=== PATIENT | female | born 1965 | race African-American/Black ===

== ENCOUNTER 2016-08-12 05:12 | Emergency (ER) | payer MEDICAID, OTHER ==
[~2016-08-12] VITALS: Ht 170.2 cm; Wt 77.0 kg
[~2016-08-12 05:12] MED LIST: ALBUTEROL; AMLO5TAB88; GABAPENTIN; TRAMADOL
[2016-08-12] MEDS ORDERED: PREDNISONE 20MG TABLET PO STA (05:38)
[2016-08-12] MEDS ORDERED: IPRATROPIUM BROMIDE (0.02%) 0.5MG/2.5ML NEB HHN STA (05:38)
[2016-08-12] MEDS ORDERED: ALBUTEROL (0.083%) 2.5MG/3ML NEB HHN STA (05:38)
[2016-08-12 07:46] VITALS: BP 119/67
== END 2016-08-12 08:40 | disposition home or self-care (01) ==
LOC: ER 05:14
DX: J45.901 Unspecified asthma with (acute) exacerbation (principal); I10 Essential (primary) hypertension; F12.90 Cannabis use, unspecified, uncomplicated; Z79.51 Long term (current) use of inhaled steroids; Z79.899 Other long term (current) drug therapy
CPT/HCPCS: 71010; 94640; 99283; J7512; J7611; Z7610

== ENCOUNTER 2018-03-25 09:06 | Emergency (ER) | payer MEDICAID ==
[~2018-03-25] VITALS: Ht 170.2 cm; Wt 78.0 kg
[2018-03-25 09:09] VITALS: BP 126/57
== END 2018-03-25 09:44 | disposition home or self-care (01) ==
LOC: ER 09:06
DX: J45.909 Unspecified asthma, uncomplicated (principal)
CPT/HCPCS: 99283

== ENCOUNTER 2018-04-15 17:25 | Emergency (ER) | payer MEDICAID ==
[~2018-04-15] VITALS: Ht 170.2 cm; Wt 77.2 kg
[2018-04-15 18:52] VITALS: BP 134/81
== END 2018-04-15 19:55 | disposition home or self-care (01) ==
LOC: ER 17:25
DX: T84.028A Dislocation of other internal joint prosthesis, initial encounter (principal); Y82.8 Other medical devices associated with adverse incidents; Y92.89 Other specified places as the place of occurrence of the external cause; J45.909 Unspecified asthma, uncomplicated; I10 Essential (primary) hypertension; Z98.890 Other specified postprocedural states
CPT/HCPCS: 29515; 99283

== ENCOUNTER 2019-03-13 04:53 | Emergency (ER) | payer MEDICAID, OTHER | END 2019-03-13 07:17 | disposition left against medical advice (07) | LOC: ER 04:53 | DX: J45.909 Unspecified asthma, uncomplicated (principal); Z53.21 Procedure and treatment not carried out due to patient leaving prior to being seen by health care provider ==

== ENCOUNTER 2021-03-16 07:45 | Emergency (ER) | payer OTHER ==
[~2021-03-16] VITALS: Ht 170.2 cm; Wt 77.0 kg
[2021-03-16 07:48] VITALS: BP 137/92
[2021-03-16] MEDS ORDERED: ALBUTEROL (0.083%) 2.5MG/3ML NEB HHN ONE (08:15)
[2021-03-16] MEDS ORDERED: GUAI600T26 MT (09:09)
[2021-03-16] MEDS ORDERED: ALBU05 NEB (09:09)
[2021-03-16] MEDS ORDERED: ALBU6.7H9 INH (09:09)
[2021-03-16] MEDS ORDERED: BENZ-16 MT (09:09)
== END 2021-03-16 09:35 | disposition home or self-care (01) ==
LOC: ER 07:45
DX: J45.901 Unspecified asthma with (acute) exacerbation (principal); B34.9 Viral infection, unspecified; I10 Essential (primary) hypertension; F12.10 Cannabis abuse, uncomplicated; Z20.822 Contact with and (suspected) exposure to COVID-19
CPT/HCPCS: 71045; 94640; 99284; C9803; U0003; U0005; Z7610

== ENCOUNTER 2021-11-20 08:19 | Emergency (ER) | payer MEDICAID, OTHER ==
[~2021-11-20] VITALS: Ht 170.2 cm; Wt 77.0 kg
[~2021-11-20 08:19] MED LIST changes: +ALBU05 NEB; +ALBU6.7H9 INH; +BENZ-16 MT; +GUAI600T26 MT
[2021-11-20] MEDS ORDERED: PREDNISONE 20MG TABLET PO STA (08:55)
[2021-11-20] MEDS ORDERED: ALBUTEROL (0.083%) 2.5MG/3ML NEB HHN STA (08:55)
[2021-11-20] MEDS ORDERED: IPRATROPIUM BROMIDE (0.02%) 0.5MG/2.5ML NEB HHN STA (08:55)
[2021-11-20 10:50] VITALS: BP 118/65
[2021-11-20] MEDS ORDERED: FLUT1DIS3 INH (11:14)
[2021-11-20] MEDS ORDERED: ALBU6.7H9 INH (11:18)
[2021-11-20] MEDS ORDERED: P50 PO (11:18)
== END 2021-11-20 11:22 | disposition home or self-care (01) ==
LOC: ER 08:19
DX: J45.901 Unspecified asthma with (acute) exacerbation (principal); I10 Essential (primary) hypertension; Z98.890 Other specified postprocedural states
CPT/HCPCS: 93005; 94644; 94664; 99285; J7512; Z7610

== ENCOUNTER 2022-03-18 03:59 | Emergency (ER) | payer OTHER ==
[~2022-03-18] VITALS: Ht 170.2 cm; Wt 77.0 kg
[~2022-03-18 03:59] MED LIST changes: +ALBU6.7H3 INH; -ALBU6.7H9 INH; +FLUT1DIS3 INH; +P50 PO
[2022-03-18 04:13] VITALS: BP 133/88
[2022-03-18] MEDS ORDERED: DEXAMETHASONE 1MG TABLET PO ONE (15:30)
[2022-03-18] MEDS ORDERED: DEXAMETHASONE 4MG TABLET PO NR (15:30)
[2022-03-18] MEDS ORDERED: DEXAMETHASONE 4MG TABLET PO SCH (21:00)
== END 2022-03-18 15:57 | disposition home or self-care (01) ==
LOC: ER 03:59
DX: J45.901 Unspecified asthma with (acute) exacerbation (principal); F12.10 Cannabis abuse, uncomplicated; I10 Essential (primary) hypertension; Z79.899 Other long term (current) drug therapy; Z98.890 Other specified postprocedural states
CPT/HCPCS: 99283; J8540

== ENCOUNTER 2022-04-15 09:20 | Emergency (ER) | payer OTHER ==
[~2022-04-15] VITALS: Ht 167.6 cm; Wt 67.0 kg
[2022-04-15] MEDS ORDERED: ASPIRIN 81MG TABLET PO ONE (10:45)
[2022-04-15] MEDS ORDERED: NITROGLYCERIN 0.4MG TABLET SL SL PRN (10:45)
[2022-04-15 11:33] LABS: EOSINOPHILS % 3.8 % (0.0-5.0); HEMATOCRIT. 40.6 % (36.0-48.0); HEMOGLOBIN. 12.9 g/dL (12.0-16.0); LYMPHOCYTES % 33.4 % (20.0-50.0); MEAN CORPUSCULAR HEMOGLOBIN 20.8 pg (28.0-32.0); MEAN CORPUSCULAR VOLUME 65.3 fL (81.0-99.0); MEAN PLATELET VOLUME 8.6 fl (7.4-10.4); MONOCYTES % 6.8 % (2.0-8.0); PLATELET 267 x1000/uL (130-400); RED BLOOD CELL COUNT 6.22 mill/uL (4.2-5.4); RED CELL DISTRIBUTION WIDTH 18.3 % (11.6-14.6)
[2022-04-15 11:43] LABS: CHLORIDE 105 mEq/L (98-107)
[2022-04-15 11:55] LABS: PLATELET ESTIMATE NORMAL
[2022-04-15] MEDS ORDERED: IOHEXOL-350 100 ML BOTTLE ONE (13:21)
[2022-04-15 15:15] VITALS: BP 134/74
== END 2022-04-15 15:16 | disposition home or self-care (01) ==
LOC: ER 09:20
DX: R07.89 Other chest pain (principal); R06.02 Shortness of breath; J45.909 Unspecified asthma, uncomplicated; I10 Essential (primary) hypertension; F12.10 Cannabis abuse, uncomplicated; Z79.899 Other long term (current) drug therapy
CPT/HCPCS: 36415; 71045; 71275; 80053; 83880; 84484; 85025; 85379; 93005; 99285; Q9967; Z7610

== ENCOUNTER 2022-05-12 09:34 | Emergency (ER) | payer OTHER ==
[~2022-05-12] VITALS: Ht 170.2 cm; Wt 77.5 kg
[2022-05-12 09:41] VITALS: BP 122/61
[2022-05-12] MEDS ORDERED: AMOX-494 MT (11:03)
[2022-05-12] MEDS ORDERED: IBUP-2029 MT (11:03)
== END 2022-05-12 11:13 | disposition home or self-care (01) ==
LOC: ER 09:34
DX: J02.9 Acute pharyngitis, unspecified (principal); I10 Essential (primary) hypertension; J45.909 Unspecified asthma, uncomplicated; F12.10 Cannabis abuse, uncomplicated
CPT/HCPCS: 99281

== ENCOUNTER 2022-12-09 08:24 | Emergency (ER) | payer OTHER ==
[~2022-12-09] VITALS: Ht 170.2 cm; Wt 77.2 kg
[~2022-12-09 08:24] MED LIST changes: +AMOX-494 MT; +IBUP-2029 MT
[2022-12-09 08:39] VITALS: O2SAT 98
[2022-12-09 09:18] LABS: BASOPHILS % 0.6 % (0.0-2.0); EOSINOPHILS % 1.3 % (0.0-5.0); HEMATOCRIT. 42.4 % (36.0-48.0); HEMOGLOBIN. 13.5 g/dL (12.0-16.0); LYMPHOCYTES % 20.7 % (20.0-50.0); MEAN CORPUSCULAR HEMOGLOBIN 21.1 pg (28.0-32.0); MEAN CORPUSCULAR HGB CONC 31.9 g/dL (31.0-37.0); MEAN CORPUSCULAR VOLUME 66.1 fL (81.0-99.0); MEAN PLATELET VOLUME 8.6 fl (7.4-10.4); MONOCYTES % 5.9 % (2.0-8.0); NEUTROPHILS % 71.5 % (40.0-76.0); PLATELET 269 x1000/uL (130-400); RED BLOOD CELL COUNT 6.41 mill/uL (4.2-5.4); WHITE BLOOD COUNT 8.9 x1000/uL (4.5-11.0)
[2022-12-09 09:20] LABS: ADD RBC MORPHOLOGY YES; DIFFERENTIAL COMMENT 1
[2022-12-09 09:26] LABS: CHLORIDE 108 mEq/L (98-107); INDEX HEMOLYSI 2 (1-3); INDEX ICTERIC 1 (1-4); INDEX LIPEMIC 1 (1-3); POTASSIUM 3.8 mEq/L (3.5-5.1); SODIUM 140 mEq/L (136-145)
[2022-12-09 09:33] LABS: ALANINE AMINOTRANSFERASE 20 IU/L (13-61); ALBUMIN 3.9 g/dL (3.4-5.0); ASPARTATE AMINOTRANSFERASE 22 IU/L (15-37); BILIRUBIN TOTAL 0.4 mg/dL (0.1-1.0); CARBON DIOXIDE 28 mEq/L (21-32); CREATININE 0.8 mg/dL (0.6-1.3); GLUCOSE 111 mg/dL (70-105); PROTEIN TOTAL 8.3 g/dL (6.0-8.3); UREA NITROGEN BLOOD 19 mg/dL (7-21)
[2022-12-09] MEDS ORDERED: LACTATED RINGERS 1,000 ML IV SCH (09:45)
[2022-12-09 09:46] LABS: ANISOCYTOSIS 1+; MICROCYTOSIS 3+; PLATELET ESTIMATE NORMAL
[2022-12-09 10:44] LABS: CLARITY URINE TURBID (CLEAR); COLOR URINE RED (YELLOW); GLUCOSE URINE NEGATIVE (NEGATIVE); KETONES URINE NEGATIVE (NEGATIVE); LEUKOCYTE ESTERASE URINE 3+ (NEGATIVE); NITRITE URINE POSITIVE (NEGATIVE); OCCULT BLOOD URINE 1+ (NEGATIVE); PROTEIN URINE 2+ (NEGATIVE); SPECIFIC GRAVITY URINE 1.018 (1.005-1.030); UROBILINOGEN URINE 0.2 E.U./dL (0.2-1.0)
[2022-12-09] MEDS ORDERED: KETOROLAC 15MG/ML VIAL IV ONE (10:45)
[2022-12-09] MEDS ORDERED: CEFTRIAXONE 1GM PREMIX 50 ML IV ONE (10:45)
[2022-12-09 10:46] LABS: SQUAMOUS EPITHELIAL CELL URINE 1+ /lpf (RARE/1+); YEAST URINE NONE SEEN
[2022-12-09 10:50] LABS: RBC URINE TNTC /hpf (0-2); WBC URINE TNTC /hpf (0-2)
[2022-12-09 10:51] LABS: BACTERIA URINE 1+
[2022-12-09] MEDS ORDERED: CIPR250S3 MT ×2 (12:20)
[2022-12-09] MEDS ORDERED: CIPR-263 MT (12:21)
[2022-12-09 13:25] VITALS: BP 129/87; PULSE 84; RESP 19; TEMP 98.1
== END 2022-12-09 13:27 | disposition home or self-care (01) ==
LOC: ER 08:24
DX: N39.0 Urinary tract infection, site not specified (principal); F12.10 Cannabis abuse, uncomplicated; I10 Essential (primary) hypertension; J45.909 Unspecified asthma, uncomplicated; Z79.899 Other long term (current) drug therapy
CPT/HCPCS: 80053; 81003; 81025; 83690; 85025; 87086; 87186; 87077; 36415; 74176; 96365; 96375; 99285; J0696; J1885; Z7610 ×2

== ENCOUNTER 2023-02-24 08:21 | Emergency (ER) | payer OTHER ==
[~2023-02-24] VITALS: Ht 167.6 cm; Wt 91.0 kg
[~2023-02-24 08:21] MED LIST changes: +CIPR-263 MT
[2023-02-24 08:39] VITALS: TEMP 98.3; O2SAT 100
[2023-02-24 09:53] LABS: BASOPHILS % 1.3 % (0.0-2.0); EOSINOPHILS % 3.9 % (0.0-5.0); HEMATOCRIT. 39.8 % (36.0-48.0); HEMOGLOBIN. 12.9 g/dL (12.0-16.0); LYMPHOCYTES % 44.2 % (20.0-50.0); MEAN CORPUSCULAR HEMOGLOBIN 21.6 pg (28.0-32.0); MEAN CORPUSCULAR HGB CONC 32.5 g/dL (31.0-37.0); MEAN CORPUSCULAR VOLUME 66.4 fL (81.0-99.0); MEAN PLATELET VOLUME 8.5 fl (7.4-10.4); MONOCYTES % 7.3 % (2.0-8.0); NEUTROPHILS % 43.3 % (40.0-76.0); PLATELET 234 x1000/uL (130-400); RED CELL DISTRIBUTION WIDTH 17.3 % (11.6-14.6); WHITE BLOOD COUNT 4.2 x1000/uL (4.5-11.0)
[2023-02-24 09:54] LABS: ADD RBC MORPHOLOGY YES; DIFFERENTIAL COMMENT 1
[2023-02-24 10:10] LABS: ALANINE AMINOTRANSFERASE 9 IU/L (10-49); ALBUMIN 4.1 g/dL (3.2-4.8); ASPARTATE AMINOTRANSFERASE 27 IU/L (<34); BILIRUBIN TOTAL 0.4 mg/dL (0.1-1.0); CALCIUM 9.1 mg/dL (8.7-10.4); CARBON DIOXIDE 30 mEq/L (21-32); CHLORIDE 106 mEq/L (98-107); CREATININE 0.8 mg/dL (0.6-1.0); GLUCOSE 107 mg/dL (70-105); PROTEIN TOTAL 6.6 g/dL (6.0-8.3); SODIUM 142 mEq/L (136-145); UREA NITROGEN BLOOD 10 mg/dL (9-23)
[2023-02-24 11:26] LABS: CLARITY URINE CLEAR (CLEAR); COLOR URINE YELLOW (YELLOW); GLUCOSE URINE NEGATIVE (NEGATIVE); KETONES URINE NEGATIVE (NEGATIVE); LEUKOCYTE ESTERASE URINE NEGATIVE (NEGATIVE); NITRITE URINE NEGATIVE (NEGATIVE); OCCULT BLOOD URINE NEGATIVE (NEGATIVE); PH URINE 5.5 (4.5-8.0); PROTEIN URINE NEGATIVE (NEGATIVE); SPECIFIC GRAVITY URINE 1.021 (1.005-1.030); UROBILINOGEN URINE 0.2 E.U./dL (0.2-1.0)
[2023-02-24] MEDS ORDERED: HYDROCODONE/ACETAMINOPHEN 5/325MG TABLET PO ONE (11:30)
[2023-02-24 11:35] VITALS: BP 126/59; PULSE 80; RESP 16
[2023-02-24 11:56] LABS: MICROCYTOSIS 1+; PLATELET ESTIMATE NORMAL
== END 2023-02-24 15:52 | disposition home or self-care (01) ==
LOC: ER 09:04
DX: R30.0 Dysuria (principal); F12.90 Cannabis use, unspecified, uncomplicated; J45.909 Unspecified asthma, uncomplicated; I10 Essential (primary) hypertension; Z98.890 Other specified postprocedural states
CPT/HCPCS: 36415; 76830; 76856; 80053; 81003; 85025; 99284

== ENCOUNTER 2023-07-15 13:40 | Emergency (ER) | payer OTHER ==
[~2023-07-15] VITALS: Ht 170.2 cm; Wt 78.0 kg
[2023-07-15 13:49] VITALS: TEMP 98.5
[2023-07-15] MEDS: PREDNISONE 20MG TABLET PO STA (15:34)
[2023-07-15] MEDS: IPRATROPIUM/ALBUTEROL 0.5-3(2.5)MG/3ML NEB HHN ONE (15:51)
[2023-07-15 15:52] VITALS: PULSE 74; RESP 18; O2SAT 98
[2023-07-15] MEDS ORDERED: P20 MT (16:12)
[2023-07-15 16:27] VITALS: BP 135/84; PULSE 65; RESP 18
== END 2023-07-15 16:29 | disposition home or self-care (01) ==
LOC: ER 13:40
DX: R06.2 Wheezing (principal); R06.02 Shortness of breath; I10 Essential (primary) hypertension; F12.10 Cannabis abuse, uncomplicated; Z79.899 Other long term (current) drug therapy
CPT/HCPCS: 71045; 94640; 99283; J7512; Z7610 ×3

== ENCOUNTER 2024-04-27 12:09 | Emergency (ER) | payer OTHER ==
[~2024-04-27] VITALS: Ht 171.4 cm; Wt 80.7 kg
[~2024-04-27 12:09] MED LIST changes: +P20 MT
[2024-04-27 12:36] VITALS: O2SAT 96
[2024-04-27] MEDS ORDERED: MELO-105 MT (13:01)
[2024-04-27] MEDS ORDERED: HYDR-4001 MT (13:01)
[2024-04-27 13:10] VITALS: BP 111/79; PULSE 78; RESP 17; TEMP 37.1; O2SAT 98
== END 2024-04-27 13:12 | disposition home or self-care (01) ==
LOC: ER 12:16
DX: M25.512 Pain in left shoulder (principal); I10 Essential (primary) hypertension; J45.909 Unspecified asthma, uncomplicated; F12.90 Cannabis use, unspecified, uncomplicated; Z79.1 Long term (current) use of non-steroidal anti-inflammatories (NSAID); Z79.51 Long term (current) use of inhaled steroids; Z79.52 Long term (current) use of systemic steroids; Z87.59 Personal history of other complications of pregnancy, childbirth and the puerperium
CPT/HCPCS: 99283

== ENCOUNTER 2024-07-08 09:48 | Emergency (ER) | payer OTHER ==
[~2024-07-08] VITALS: Ht 170.2 cm; Wt 79.3 kg
[~2024-07-08 09:48] MED LIST changes: +HYDR-4001 MT; +MELO-105 MT
[2024-07-08 09:57] VITALS: TEMP 36.7; O2SAT 97
[2024-07-08 10:58] LABS: CLARITY URINE TURBID (CLEAR); COLOR URINE YELLOW (YELLOW); GLUCOSE URINE NEGATIVE (NEGATIVE); KETONES URINE TRACE (NEGATIVE); LEUKOCYTE ESTERASE URINE 3+ (NEGATIVE); NITRITE URINE NEGATIVE (NEGATIVE); OCCULT BLOOD URINE 3+ (NEGATIVE); PH URINE 5.5 (4.5-8.0); PROTEIN URINE 1+ (NEGATIVE); SPECIFIC GRAVITY URINE 1.021 (1.005-1.030); UROBILINOGEN URINE 0.2 E.U./dL (0.2-1.0)
[2024-07-08] MEDS ORDERED: CEPH500T MT (12:00)
[2024-07-08 12:05] LABS: BACTERIA URINE 1+; RBC URINE 50-100 /hpf (0-2); SQUAMOUS EPITHELIAL CELL URINE 2+ /lpf (RARE/1+); WBC URINE TNTC /hpf (0-2); YEAST URINE NONE SEEN
[2024-07-08 12:20] VITALS: BP 113/77; PULSE 75; RESP 16; O2SAT 100
== END 2024-07-08 12:21 | disposition home or self-care (01) ==
LOC: ER 09:54
DX: N39.0 Urinary tract infection, site not specified (principal); I10 Essential (primary) hypertension; J45.909 Unspecified asthma, uncomplicated; Z79.899 Other long term (current) drug therapy; Z98.890 Other specified postprocedural states
CPT/HCPCS: 81003; 87077; 87186; 99283

== ENCOUNTER 2025-03-21 10:42 | Emergency (ER) | payer OTHER ==
[~2025-03-21] VITALS: Ht 170.2 cm; Wt 82.0 kg
[~2025-03-21 10:42] MED LIST changes: +CEPH500T MT; +IBUP-1455 MT; -IBUP-2029 MT
[2025-03-21 10:52] VITALS: O2SAT 97
[2025-03-21] MEDS ORDERED: FLUC200T51 MT (11:30)
[2025-03-21] MEDS ORDERED: FLUC100T42 MT (11:30)
[2025-03-21 11:41] VITALS: BP 128/78; PULSE 80; RESP 15; TEMP 36.7; O2SAT 99
== END 2025-03-21 11:47 | disposition home or self-care (01) ==
LOC: ER 10:42
DX: B37.0 Candidal stomatitis (principal); I10 Essential (primary) hypertension; J45.909 Unspecified asthma, uncomplicated; Z79.1 Long term (current) use of non-steroidal anti-inflammatories (NSAID); Z79.51 Long term (current) use of inhaled steroids; Z79.52 Long term (current) use of systemic steroids; Z87.59 Personal history of other complications of pregnancy, childbirth and the puerperium
CPT/HCPCS: 99283